=== PATIENT | female | born 1995 | race African-American/Black ===

== ENCOUNTER 2022-07-24 10:00 | Emergency (ER) | payer OTHER ==
[~2022-07-24] VITALS: Ht 160 cm; Wt 70.3 kg
[2022-07-24] MEDS ORDERED: METHOCARBAMOL500 MG PO (12:05)
== END 2022-07-24 12:15 | disposition home or self-care (01) ==
LOC: ER 10:03
DX: S16.1XXA Strain of muscle, fascia and tendon at neck level, initial encounter (principal); S39.012A Strain of muscle, fascia and tendon of lower back, initial encounter; V43.52XA Car driver injured in collision with other type car in traffic accident, initial encounter; Y92.488 Other paved roadways as the place of occurrence of the external cause
CPT/HCPCS: 72050; 72110; 99284